=== PATIENT | male | born 1995 | race Caucasian/White ===

== ENCOUNTER 2017-08-09 10:54 | Outpatient (CLI) | payer OTHER ==
[2016-01-31 16:27] VITALS: BP 124/87
== END 2017-08-09 10:55 ==
LOC: LABRHC 10:54
PROVIDERS: ATTEND Family Medicine
DX: Z20.2 Contact with and (suspected) exposure to infections with a predominantly sexual mode of transmission (principal)
CPT/HCPCS: 87491; 87591